=== PATIENT | male | born 1985 | race Caucasian/White ===

== ENCOUNTER 2017-04-16 12:46 | Emergency (ER) | payer BC, OTHER ==
[~2017-04-16] VITALS: Ht 175.3 cm; Wt 81.7 kg
[2017-04-16 12:56] VITALS: BP 124/82
[2017-04-16] MEDS ORDERED: IBUPROFEN 800800 M1 PO (14:04)
== END 2017-04-16 14:47 | disposition home or self-care (01) ==
LOC: ER 12:46
DX: S60.122A Contusion of left index finger with damage to nail, initial encounter (principal); F17.210 Nicotine dependence, cigarettes, uncomplicated; F10.99 Alcohol use, unspecified with unspecified alcohol-induced disorder; W24.0XXA Contact with lifting devices, not elsewhere classified, initial encounter; Y93.89 Activity, other specified; Y92.89 Other specified places as the place of occurrence of the external cause; Y99.8 Other external cause status